=== PATIENT | male | born 1950 | race Caucasian/White ===

== ENCOUNTER 2024-09-28 05:53 | Inpatient (IN) | payer MEDICARE ==
[2024-09-28] MEDS ORDERED: NITROGLYCERIN SL TABS 0.4 MG TAB SUBLINGUAL PRN (05:58)
[2024-09-28] MEDS ORDERED: CLOPIDOGREL 75 MG TAB PO PRN (05:58)
[2024-09-28] MEDS ORDERED: ALPRAZolam 0.25 MG TAB PO PRN (05:58)
[2024-09-28] MEDS ORDERED: ALPRAZolam 0.5 MG TAB PO PRN (05:58)
[2024-09-28] MEDS ORDERED: ASPIRIN 81 MG PO PRN (05:58)
[2024-09-28 06:48] LABS: Basophils # (A) 0.06 10*3/uL (0.00-0.10); Basophils % (A) 0.9 %; Eosinophils # (A) 0.01 10*3/uL (0.04-0.35); Eosinophils % (A) 0.2 %; HCT 39.0 % (39.6-50.0); HGB 13.1 g/dL (13.0-17.0); Lymphocytes # (A) 2.63 10*3/uL (0.90-5.00); Lymphocytes % (A) 40.5 %; MCH 30.8 pg (27.0-32.0); MCHC 33.6 g/dL (32.0-37.0); MCV 91.5 fL (80.0-97.0); Monocytes # (A) 1.48 10*3/uL (0.20-1.00); Monocytes % (A) 22.8 %; Neutrophils # (A) 2.27 10*3/uL (1.80-7.70); Neutrophils % (A) 34.8 %; Platelet Count 162 10*3/uL (140-440); RBC 4.26 10*6/uL (4.40-5.60); RDW 13.2 % (11.5-14.5); WBC 6.50 10*3/uL (4.50-10.00)
[2024-09-28 06:59] LABS: African American GFR (CKD) 85 (>60 ml/min/1.73 sqM); Anion Gap 7 mmol/L; Blood Urea Nitrogen 17 mg/dL (9-20); Calcium 11.6 mg/dL (8.4-10.2); Carbon Dioxide 28 mmol/L (22-30); Chloride 107 mmol/L (98-107); Glucose 104 mg/dL (74-99); Non-African American GFR(CKD) 74 (>60 ml/min/1.73 sqM); Potassium 4.6 mmol/L (3.5-5.1); Sodium 142 mmol/L (137-145)
[2024-09-28] MEDS ORDERED: ceFAZolin 2 GM in SODIUM CHLORIDE 0.9% 500 ML 500 ML IRRIGATION PRN (07:00)
[2024-09-28] MEDS: MIDAZOLAM 2 MG/2 ML VIAL IV STA (07:06)
[2024-09-28] MEDS ORDERED: DEXMEDETOMIDINE/0.9% NACL(PMX) 400 MCG/100 ML IV ONE (07:29)
[2024-09-28] MEDS ORDERED: GLYCOPYRROLATE 0.2 MG/ML 2 ML VIAL ONE (07:29)
[2024-09-28] MEDS ORDERED: hydrALAZINE HCL 20 MG/ML 1 ML VIAL ONE (07:29)
[2024-09-28] MEDS ORDERED: PROTAMINE SULFATE 10 MG/ML 5 ML VIAL ONE (07:29)
[2024-09-28] MEDS ORDERED: NITROGLYCERIN-D5W PMX 50 MG/250 ML BOTTLE IV ONE (07:29)
[2024-09-28] MEDS ORDERED: HEPARIN SODIUM,PORCINE 10,000 UNIT/ML 1 ML VIAL ONE (07:29)
--- NOTE | 2024-09-28 07:30 | P.ANPRN ---
Procedure Note - Anesthesia - Invasive Line Right Arterial Line Time Out Performed: Yes Date of Procedure: 09/28/24 Time of Procedure: 07:10 Location of Patient: PreOp Preparation: Sterile Prep Arterial Line Location: Radial Ultrasound Used: Yes Purpose - Visualization and Identification of Vasculature: Yes Image Stored and Saved: Yes Narrative: Invasive line placement per sterile protocol utilized.
--- NOTE | 2024-09-28 07:42 | P.GSHP ---
History of Present Illness H&P Date: 09/28/24 Chief Complaint: Carotid stenosis 73-year-old gentleman with history of bilateral carotid stenosis measuring greater than 80% bilaterally presents to the hospital for elective right TCAR prior to returning and having his carotid on the left repaired with endarterectomy and patch angioplasty. He denies any lateralizing symptoms such as weakness, vision changes or speech issues currently. He denies any fevers, chills, chest pain or shortness of breath. He underwent CTA which demonstrated suitable candidate for right TCAR but his left side is significantly calcified and therefore would benefit from a carotid endarterectomy. - Review of Systems All systems: negative (What is mentioned in the HPI or past medical history) Past Medical History Past Medical History: Hyperlipidemia, Syncope Additional Past Medical History / Comment(s): fainting spells x8 02/2024-04/2024- placed on midodrine which helped. still has rare dizziness with position changes. mild tear to left rotator. carotid artery disease and underlying kidney disease noted in cardiology clearance. History of Any Multi-Drug Resistant Organisms: None Reported Past Surgical History: Hernia Repair Additional Past Surgical History / Comment(s): wrist surgery, rt rotator cuff repair. colonoscopy Past Anesthesia/Blood Transfusion Reactions: No Reported Reaction Additional Past Anesthesia/Blood Transfusion Reaction / Comment(s): no blood transfusions Smoking Status: Former smoker - Past Family History Father Family Medical History: Renal Disease Additional Family Medical History / Comment(s): malaria Medications and Allergies Home Medications Medication Instructions Recorded Confirmed Type Unk Fiber Capsule 1 tab PO DAILY 09/25/24 09/28/24 History Aspirin [Adult Low Dose Aspirin EC] 81 mg PO DAILY 09/25/24 09/28/24 History Atorvastatin [Lipitor] 80 mg PO HS 09/25/24 09/28/24 History Clopidogrel [Plavix] 75 mg PO DAILY 09/25/24 09/28/24 History Ergocalciferol [Vitamin D2 (1250 1,250 mcg PO WEEKLY 09/25/24 09/28/24 History Mcg = 09733 Iu)] Fenofibrate,Micronized 130 mg PO DAILY 09/25/24 09/28/24 History [Fenofibrate] Midodrine [ProAmatine] 5 mg PO TID 09/25/24 09/28/24 History [place] [employer] 1 tab PO DAILY 09/25/24 09/28/24 History Unk Liver Tonic 1 tab PO DAILY 09/25/24 09/28/24 History Allergies Allergy/AdvReac Type Severity Reaction Status Date / Time No Known Allergies Allergy Verified 09/28/24 06:20 Surgical - Exam Vital Signs Temp Pulse Resp BP Pulse Ox 98.2 F 60 18 152/89 98 09/28/24 06:51 09/28/24 06:51 09/28/24 06:51 09/28/24 06:51 09/28/24 06:51 Patient Seen Date: 09/28/24 Patient Seen Time: 07:20 - General well developed, well nourished, no distress - Eyes PERRL, normal ocular movement - ENT normal pinna, normal nares - Neck no masses - Respiratory normal expansion, normal respiratory effort - Cardiovascular Rhythm: regular - Abdomen Abdomen: soft - Integumentary no rash - Neurologic normal coordination, normal sensation - Psychiatric oriented to time, oriented to person, oriented to place, speech is normal Results CTA neck demonstrates bilateral carotid stenosis greater than 70% - Labs 09/28/24 06:30 09/28/24 06:30 Abnormal Lab Results - Last 24 Hours (Table) 09/28/24 09/28/24 Range/Units 06:30 06:30 RBC 4.26 L (4.40-5.60) 10*6/uL Hct 39.0 L (39.6-50.0) % Immature Gran # 0.05 H (0.00-0.04) 10*3/uL Monocytes # 1.48 H (0.20-1.00) 10*3/uL Eosinophils # 0.01 L (0.04-0.35) 10*3/uL Glucose 104 H (74-99) mg/dL Calcium 11.6 H (8.4-10.2) mg/dL Diabetes panel 09/28/24 Range/Units 06:30 Sodium 142 (137-145) mmol/L Potassium 4.6 (3.5-5.1) mmol/L Chloride 107 (98-107) mmol/L Carbon Dioxide 28 (22-30) mmol/L BUN 17 (9-20) mg/dL Creatinine 1.01 (0.66-1.25) mg/dL Glucose 104 H (74-99) mg/dL Calcium 11.6 H (8.4-10.2) mg/dL Calcium panel 09/28/24 Range/Units 06:30 Calcium 11.6 H (8.4-10.2) mg/dL Pituitary panel 09/28/24 Range/Units 06:30 Sodium 142 (137-145) mmol/L Potassium 4.6 (3.5-5.1) mmol/L Chloride 107 (98-107) mmol/L Carbon Dioxide 28 (22-30) mmol/L BUN 17 (9-20) mg/dL Creatinine 1.01 (0.66-1.25) mg/dL Glucose 104 H (74-99) mg/dL Calcium 11.6 H (8.4-10.2) mg/dL Adrenal panel 09/28/24 Range/Units 06:30 Sodium 142 (137-145) mmol/L Potassium 4.6 (3.5-5.1) mmol/L Chloride 107 (98-107) mmol/L Carbon Dioxide 28 (22-30) mmol/L BUN 17 (9-20) mg/dL Creatinine 1.01 (0.66-1.25) mg/dL Glucose 104 H (74-99) mg/dL Calcium 11.6 H (8.4-10.2) mg/dL Assessment and Plan Assessment: Bilateral internal carotid artery stenosis greater than 70% Hyperlipidemia Hypertension Plan: Risks and benefits of CEA, TCAR, transfemoral carotid stenting discussed with the patient and through shared decision making patient wishes to proceed with TCAR on the right. He does smoke cigars occasionally with a history of tobacco abuse which he has quit roughly 30 years ago smoking cigarettes. Once again we discussed smoking cessation for his cigars and referred to [place] quit line. Patient states taking his aspirin and Plavix. To the OR for TCAR procedure on the right.
[2024-09-28] MEDS: LIDOCAINE 1% INJ 10MG/ML (20 ML MDV) SQ ONE ×2 (08:02→08:25)
[2024-09-28] MEDS: ceFAZolin 2 GM in SODIUM CHLORIDE 0.9% 500 ML 500 ML IRRIGATION ONE (08:05)
[2024-09-28] MEDS: HEPARIN SODIUM (1,000 UNIT/ML) 2,000 UNIT in SODIUM CHLORIDE 0.9% 1,000 ML IRRIGATION ONE (08:05)
[2024-09-28] MEDS: THROMBIN (BOVINE) 5,000 UNIT VIAL TOPICAL ONE (08:20)
[2024-09-28] MEDS: IOPAMIDOL-370 100ML BTL INJ ONE (08:59)
[2024-09-28] MEDS ORDERED: RX INFO: IV CONTRAST WAS GIVEN 1 EACH MISC MISCELLANE PRN (09:00)
[2024-09-28] MEDS ORDERED: MAG HYDROX/AL HYDROX/SIMETH 30 ML CUP PO PRN (09:09)
[2024-09-28] MEDS ORDERED: ATROPINE SULFATE 0.1 MG/ML 10ML SYRINGE IV PRN (09:09)
--- NOTE | 2024-09-28 09:09 | P.OP ---
Description of Procedure: Date: 09/28/2024 Preoperative diagnosis: Right internal carotid stenosis greater than 70% Postoperative diagnosis: Same Procedure: Right internal carotid artery TCAR (transient carotid artery revascularization) with ENROUTE trans-carotid neuro protection and stent system Surgeon: Kalen Martinez D.O. Anesthesia: Local with sedation Estimated blood loss: Minimal Complications: None Condition: Stable Findings: Calcific disease at the bifurcation Pre-Dilatation balloon: 5.5 x 30 mm balloon Stent: 10 x 30 mm En route stent Flow reversal time: 8 minutes Contrast: 40 cc Indication for procedure: 73-year-old gentleman with history of bilateral internal carotid artery stenosis noted on elevated velocities for carotid Doppler as well as CTA presents to the hospital for elective right TCAR and then to follow-up with a left carotid endarterectomy. He did not have any lateralizing symptoms such as weakness, vision changes or speech issues prior to and only symptoms were dizziness. Operative narrative: After written and informed consent was obtained from the patient and all risks, benefits and complications were described. The patient was brought to the operating suite and laid in a supine position. The neck and groin were prepped and the patient was sterilely draped. A transverse 2-4 cm incision was made between the sternal and clavicular heads of the sternocleidomastoid muscle, below the omohyoid. Following longitudinal division of the carotid sheath the jugular vein was partially dissected and retracted. Once 3 cm of common carotid artery (CCA) were isolated, umbilical tape was placed around the proximal 1/3 of the CCA under direct vision. A 5.0 polypropylene suture was pre-placed in the anterior wall of the CCA, in a purse- string stitch, close to the clavicle to facilitate hemostasis upon removal of the arterial sheath at completion of the TCAR procedure. The contralateral left common femoral vein was accessed under ultrasound guidance, using standard Seldinger and micropuncture access technique. The Venous Return Sheath was advanced into the CFV over the 0.035 wire provided. Blood was aspirated from the flow line followed by flushing of the Venous Sheath with heparinized saline. The Venous Sheath was secured to the patient's skin with suture to maintain optimal position in the vessel. Heparin was given to obtain a therapeutic activated clotting time >250 seconds prior to arterial access. A 4-Romanian non-stiffened micropuncture set was used, puncturing the artery with the 21G needle through the pre-placed stitch while holding gentle traction on the umbilical tape to stabilize and centralize the CCA within the incision. Careful attention was paid to the change in CCA shape when using the umbilical tape to control or lift the artery. The micropuncture wire was then advanced 3-4 cm into the CCA and, the 21G needle was removed. The micropuncture sheath was advanced 2-3 cm into the CCA and the wire and dilator were removed. Pulsatile backflow indicated correct positioning. The provided 0.035" J-tipped guidewire was inserted as close as possible to the bifurcation without engaging the lesion. After micropuncture sheath removal, the Transcarotid Arterial Sheath was advanced to the 2.5cm marker and the 0.035 wire and dilator were then removed. Arterial Sheath position was assessed under fluoroscopy in two projections to ensure that the sheath tip was oriented coaxially in the CCA. The Arterial Sheath was sutured to the patient with gentle forward tension. Blood was slowly aspirated followed by flushing with heparinized saline. Traction applied to the CCA previously to facilitate access was gently released. The Flow Controller was connected to the Transcarotid Arterial Sheath, prepared by passively allowing a column of arterial blood to fill the line and connected to the Venous Return Sheath. CCA inflow was occluded proximal to the arteriotomy with a vascular clamp to achieve active flow reversal. To confirm flow reversal, a saline bolus was delivered into the venous flow line on both High and Low flow settings of the Flow Controller. Angiograms were performed with slow injections of a small amount of contrast filling just past the lesion to minimize antegrade transmission of micro-bubbles. Prior to lesion manipulation, heart rate (70bpm) and systolic BP (140-160mmHg) were managed upwards to optimize flow reversal and procedural neuroprotection. The lesion was crossed with an 0.014 guidewire, pre- dilatation with a 5.5x30mm balloon was performed followed by primary stenting with the ENROUTE Transcarotid [id number] stent. Post dilatation was not performed. At TCAR case completion, antegrade flow was restored. The Transcarotid Arterial Sheath was removed and the pre-closure suture was tied. The Venous Return Sheath was removed and hemostasis was achieved with brief manual compression. The patient tolerated the procedure well and was moving all four extremities to command and then sent to PACU for recovery.
[2024-09-28] MEDS: IV FLUID CONTINUATION 100 ML IV ONE (09:35)
[2024-09-28] MEDS: PHENYLEPHRINE 10 MG/ML VIAL IV ONE ×4 (09:59→10:33)
--- NOTE | 2024-09-28 10:40 | IR ---
EXAMINATION TYPE: IR stent intravas non coronary DATE OF EXAM: 09/28/2024 FLUOROSCOPY RT CAROTID STENOSIS Total DAP: 11.8 Gycm2. 400 images are submitted. [facility], , 09/28/2024 10:38 AM
[2024-09-28] MEDS: SODIUM CHLORIDE 0.9% 1,000 ML IV ONE (10:41)
[2024-09-28] MEDS: PHENYLEPHRINE 40 MG in SODIUM CHLORIDE 0.9% 250 ML IV SCH (10:52)
[2024-09-28] MEDS: HYDROmorphone 0.5 MG/0.5 ML SYRINGE IVP PRN (11:26)
[2024-09-28] MEDS ORDERED: NALOXONE 0.4 MG/ML 1 ML VIAL IV PRN (13:25)
[2024-09-28] MEDS ORDERED: Magnesium Replacement Protocol 1 EACH MISC MISCELLANE PRN (13:25)
[2024-09-28] MEDS ORDERED: Potassium Replacement Protocol 1 EACH MISC MISCELLANE PRN (13:25)
[2024-09-28 13:37] LABS: Glucose,Whole Blood 111 mg/dL (70-110)
[2024-09-28] MEDS: SODIUM CHLORIDE 0.9% 1,000 ML in EMPTY BAG 1 BAG IV ONE (13:45)
[2024-09-28] MEDS: ONDANSETRON 4 MG/2 ML VIAL IVP ONE (14:11)
[2024-09-28] MEDS: LACTATED RINGERS 1,000 ML IV SCH (14:11)
[2024-09-28] MEDS: DEXAMETHASONE SOD PHOSPHATE 4 MG/ML 1 ML VIAL IV ONE (14:11)
[2024-09-28] MEDS: HYDROcodone/APAP 5-325MG 1 EACH TAB PO PRN (14:31)
[2024-09-28] MEDS: FENOFIBRATE 160 MG TAB PO SCH (15:43)
[2024-09-28] MEDS: MIDODRINE 5 MG TAB PO SCH (15:43)
--- NOTE | 2024-09-28 16:33 | P.CONS ---
History of Present Illness - Reason for Consult Consult date: 09/28/24 Medical management - History of Present Illness Subjective: Patient is a 73-year-old male with past medical history of hypertension, bilateral carotid stenosis, HLD, GERD who is admitted for elective right TCAR. Patient seen and examined at bedside. No acute events overnight. Patient states he is doing well after the procedure. He notes he had a headache earlier however at this time it is resolved. He also notes since having the catheter placed during the procedure he has had the urge to urinate more frequently. His last bowel movement was yesterday. Of note, patient is a former smoker. Patient states the surgeon told him to continue his Plavix and will complete a left endarterectomy in 3 to 4 weeks. He denies fevers, chills, dysuria, chest pain, shortness of breath, abdominal pain. Pertinent positives and negatives as discussed above, a complete review of systems was performed and all other systems are negative. Vitals: Signs Reviewed Physical Exam: General: nontoxic, no distress, appears at stated age Derm: warm, dry, intact. Dressing intact and dry to right neck with no erythema. Head: atraumatic, normocephalic, symmetric Eyes: EOMI, anicteric sclera Mouth: no lip lesion, mucus membranes moist Cardiovascular: S1 S2 reg, no murmur, rubs, or gallops Lungs: CTA bilateral, no rhonchi, no rales, no accessory muscle use Abdominal: soft, non-tender to palpation Extremities: no gross muscle atrophy, no edema Neuro: Alert, Oriented, CNII-XII grossly intact Psych: well appearing, appropriate affect Data Received Today: Pertinent Labs: WBC 6.50, hemoglobin 13.1, sodium 142, potassium 4.6, BUN 17, creatinine 1.01, calcium 11.6 Imaging: None today Assessment and Plan: Hypercalcemia - Calcium 11.6 currently - Will continue to monitor Hypotension - Continue home midodrine 5 mg p.o. 3 times daily - Currently on phenylephrine, will de-escalate as tolerated Hyperlipidemia - Continue home atorvastatin 80 mg at bedtime and fenofibrate 160 mg daily s/p Right TCAR Bilateral carotid stenosis Dizziness - Pain management per primary team - Continue home Plavix 75 mg daily - Continue home aspirin 81 mg daily - GI prophylaxis per primary team - VTE prophylaxis per primary team F: NS 1mL/kg/hr and then 75ml/hr for 1L total E: Will monitor replenish as needed N: Heart healthy diet A: Independently ambulating DVT ppx: Mechanical SCDs Code status: Full code Anticipated discharge place: Per primary team Anticipated discharge time: Per primary team Rober Kline DO PGY-1 IM Dictation was produced using [employer] dictation software. please excuse any grammatical, word or spelling errors. I have seen and evaluated the patient today. Discussed with the resident and agree with the residents finding and plan as documented in the resident's note. Changes highlighted in blue font. Past Medical History Past Medical History: Coronary Artery Disease (CAD), GERD/Reflux, Hyperlipidemia, Syncope Additional Past Medical History / Comment(s): fainting spells x8 02/2024-04/2024- placed on midodrine which helped. still has rare dizziness with position changes. mild tear to left rotator. carotid artery disease and underlying kidney disease noted in cardiology clearance., Seasonal allergies, Tinnitus, History of Any Multi-Drug Resistant Organisms: None Reported Past Surgical History: Hernia Repair Additional Past Surgical History / Comment(s): wrist surgery, rt rotator cuff repair. colonoscopy Past Anesthesia/Blood Transfusion Reactions: No Reported Reaction Additional Past Anesthesia/Blood Transfusion Reaction / Comm: no blood transfusions Past Psychological History: No Psychological Hx Reported Smoking Status: Former smoker Past Alcohol Use History: Occasional Additional Past Alcohol Use History / Comment(s): quit smoking 35yrs ago 1ppd, smokes a few cigars a week until a month ago. 1-2 drinks in the Daily in the evening Past Drug Use History: None Reported - Past Family History Father Family Medical History: Renal Disease Additional Family Medical History / Comment(s): malaria Medications and Allergies Home Medications Medication Instructions Recorded Confirmed Type Unk Fiber Capsule 1 tab PO DAILY 09/25/24 09/28/24 History Aspirin [Adult Low Dose Aspirin EC] 81 mg PO DAILY 09/25/24 09/28/24 History Atorvastatin [Lipitor] 80 mg PO HS 09/25/24 09/28/24 History Clopidogrel [Plavix] 75 mg PO DAILY 09/25/24 09/28/24 History Ergocalciferol [Vitamin D2 (1250 1,250 mcg PO WEEKLY 09/25/24 09/28/24 History Mcg = 93960 Iu)] Fenofibrate,Micronized 130 mg PO DAILY 09/25/24 09/28/24 History [Fenofibrate] Midodrine [ProAmatine] 5 mg PO TID 09/25/24 09/28/24 History [place] [employer] 1 tab PO DAILY 09/25/24 09/28/24 History Unk Liver Tonic 1 tab PO DAILY 09/25/24 09/28/24 History Allergies Allergy/AdvReac Type Severity Reaction Status Date / Time No Known Allergies Allergy Verified 09/28/24 06:20 Physical Exam Vitals: Vital Signs Temp Pulse Resp BP BP BP BP 09/28/24 13:26 64 14 130/69 09/28/24 13:00 58 L 10 L 95/57 100/58 116/44 09/28/24 12:45 64 12 113/64 113/66 120/48 09/28/24 12:30 59 L 12 142/73 144/72 189/67 09/28/24 12:15 58 L 10 L 149/76 149/76 183/67 09/28/24 12:00 55 L 12 146/72 151/78 184/70 09/28/24 11:45 60 12 155/79 145/80 09/28/24 11:40 163/75 152/80 09/28/24 11:30 61 12 159/80 09/28/24 11:25 57 L 9 L 168/82 169/86 09/28/24 11:15 51 L 12 161/78 09/28/24 11:13 167/85 204/67 09/28/24 11:08 190/91 09/28/24 11:05 176/87 09/28/24 11:00 58 L 10 L 172/84 175/85 191/69 09/28/24 10:53 114/70 09/28/24 10:45 104/61 09/28/24 10:40 122/69 09/28/24 10:37 141/75 129/74 09/28/24 10:26 60 11 L 130/71 147/78 174/57 09/28/24 10:15 64 10 L 127/72 165/54 09/28/24 10:07 113/66 152/57 09/28/24 10:02 121/69 160/66 09/28/24 10:00 58 L 11 L 121/69 09/28/24 09:44 58 L 6 L 86/50 116/46 09/28/24 09:29 96.7 F L 58 L 14 131/55 112/48 09/28/24 06:51 98.2 F 60 18 152/89 160/88 Pulse Ox 09/28/24 13:26 97 09/28/24 13:00 99 09/28/24 12:45 97 09/28/24 12:30 97 09/28/24 12:15 98 09/28/24 12:00 98 09/28/24 11:45 97 09/28/24 11:40 09/28/24 11:30 98 09/28/24 11:25 98 09/28/24 11:15 98 09/28/24 11:13 09/28/24 11:08 09/28/24 11:05 09/28/24 11:00 99 09/28/24 10:53 09/28/24 10:45 09/28/24 10:40 09/28/24 10:37 09/28/24 10:26 98 09/28/24 10:15 98 09/28/24 10:07 09/28/24 10:02 09/28/24 10:00 98 09/28/24 09:44 98 09/28/24 09:29 96 09/28/24 06:51 98 Intake and Output 09/28/24 09/28/24 09/28/24 06:59 14:59 22:59 Intake Total 318.906 Output Total 550 Balance -231.094 Intake: IV 302 Intake, IV Titration 16.906 Amount Phenylephrine 40 mg In 16.906 Sodium Chloride 0.9% 250 ml @ 0.5 MCG/KG/MIN 15.85 mls/hr IV .Q16H2M [facility] Rx #:[id number] Output: Urine 550 Other: Weight 83.2 kg 83.2 kg Results CBC & Chem 7: 09/28/24 06:30 09/28/24 06:30 Labs: Abnormal Lab Results - Last 24 Hours (Table) 09/28/24 09/28/24 09/28/24 Range/Units 06:30 06:30 13:36 RBC 4.26 L (4.40-5.60) 10*6/uL Hct 39.0 L (39.6-50.0) % Immature Gran # 0.05 H (0.00-0.04) 10*3/uL Monocytes # 1.48 H (0.20-1.00) 10*3/uL Eosinophils # 0.01 L (0.04-0.35) 10*3/uL Glucose 104 H (74-99) mg/dL POC Glucose (mg/dL) 111 H (70-110) mg/dL Calcium 11.6 H (8.4-10.2) mg/dL
[2024-09-28] MEDS: ATORVASTATIN 80 MG TAB PO SCH (21:42)
[2024-09-29 05:47] LABS: Basophils # (A) 0.06 10*3/uL (0.00-0.10); Basophils % (A) 0.6 %; Eosinophils # (A) 0.02 10*3/uL (0.04-0.35); Eosinophils % (A) 0.2 %; HCT 36.6 % (39.6-50.0); HGB 12.1 g/dL (13.0-17.0); Lymphocytes # (A) 3.52 10*3/uL (0.90-5.00); Lymphocytes % (A) 33.2 %; MCH 30.3 pg (27.0-32.0); MCHC 33.1 g/dL (32.0-37.0); MCV 91.7 fL (80.0-97.0); Monocytes # (A) 2.43 10*3/uL (0.20-1.00); Monocytes % (A) 22.9 %; Neutrophils # (A) 4.47 10*3/uL (1.80-7.70); Neutrophils % (A) 42.3 %; Platelet Count 150 10*3/uL (140-440); RBC 3.99 10*6/uL (4.40-5.60); RDW 13.4 % (11.5-14.5); WBC 10.59 10*3/uL (4.50-10.00)
[2024-09-29 06:01] LABS: ALT 20 U/L (4-49); AST 31 U/L (17-59); African American GFR (CKD) >90 (>60 ml/min/1.73 sqM); Albumin 3.7 g/dL (3.5-5.0); Alkaline Phosphatase 47 U/L (38-126); Anion Gap 8 mmol/L; Blood Urea Nitrogen 14 mg/dL (9-20); Calcium 10.4 mg/dL (8.4-10.2); Carbon Dioxide 25 mmol/L (22-30); Chloride 105 mmol/L (98-107); Glucose 105 mg/dL (74-99); Magnesium 1.3 mg/dL (1.6-2.3); Non-African American GFR(CKD) 81 (>60 ml/min/1.73 sqM); Potassium 4.2 mmol/L (3.5-5.1); Sodium 138 mmol/L (137-145); Total Protein 6.2 g/dL (6.3-8.2)
[2024-09-29] MEDS: MAGNESIUM SULFATE-D5W PMX 1 GM in DEXTROSE/WATER 1 100ML.BAG IVPB SCH (06:24)
[2024-09-29] MEDS: PANTOPRAZOLE 40 MG TABLET PO SCH (06:24)
[2024-09-29] MEDS: CLOPIDOGREL 75 MG TAB PO SCH (08:06)
[2024-09-29] MEDS: ASPIRIN 81 MG PO SCH (08:06)
[2024-09-29 08:19] VITALS: TEMP 99.1
--- NOTE | 2024-09-29 09:24 | P.DS ---
Providers Date of admission: 09/28/24 05:53 Attending physician: Kalen Martinez DO Consults: 09/28/24 09:36 Consult Physician Routine Consulting Provider: Ta Cook Reason/Comments: Medical management Do you want consulting provider notified?: Yes Primary care physician: Michelle Cummins [facility] Course: 73-year-old male with a history of bilateral internal carotid artery stenosis with elevated velocities on carotid Doppler as well as CTA head presented to the hospital yesterday for elective right transcarotid artery revascularization ( TCAR). He is postop day #1 for right internal carotid artery TCAR. Initially postoperatively he had some hypotension and was sent to the intensive care unit for Khadar-Synephrine. Vital signs have improved and Khadar-Synephrine has been discontinued. He has been up and ambulating. No complaints of any focal deficits. Patient is tolerating a regular diet. No difficulty with swallowing. Right side of neck incision with some ecchymosis well-approximated. Exam General appearance: The patient is alert, oriented, appears in no acute distress. HET: Head is normocephalic and atraumatic. Pupils are equal and reactive. Neck: Supple. Right side of neck incision well-approximated, with some surrounding ecchymosis, no hematoma noted. Heart: Regular. Lungs: Equal expansion, normal respiratory effort. Abdomen: Soft, nondistended. Extremities: Normal skin color and turgor. Neurological: No focal deficits. Strength and sensation are grossly intact. Assessment 1. Asymptomatic right internal carotid artery stenosis greater than 70% status post right internal carotid artery transient carotid artery revascularization with stent 2. Postoperative hypotension, now resolved. Can be expected outcome of surgery. 3. Asymptomatic left carotid stenosis Plan 1. Patient to continue aspirin 81 mg daily and Plavix 75 mg daily 2. Continue home medications 3. Castanon catheter discontinued 4. Encourage ambulation 5. Postoperative care and restrictions discussed with patient. Patient verbalized understanding. 6. Plan for discharge today with outpatient follow-up in 2 weeks The impression and plan of care has been dictated as directed. I performed a history and examination of this patient, discussed the same with the dictator. I agree with the dictator's note ,documented as a scribe. Any additional findings or plans will be noted. Procedures: Procedure: Right internal carotid artery TCAR (transient carotid artery revascularization) with ENROUTE trans-carotid neuro protection and stent system Surgeon: Kalen Martinez D.O. Patient Condition at Discharge: Stable Plan - Discharge Summary Discharge Rx Participant: Yes New Discharge Prescriptions: No Action Ergocalciferol [Vitamin D2 (1250 Mcg = 18208 Iu)] 1,250 mcg PO WEEKLY Midodrine [ProAmatine] 5 mg PO TID Atorvastatin [Lipitor] 80 mg PO HS Clopidogrel [Plavix] 75 mg PO DAILY Unk Liver Tonic 1 tab PO DAILY Unk Fiber Capsule 1 tab PO DAILY Fenofibrate,Micronized [Fenofibrate] 130 mg PO DAILY Aspirin [Adult Low Dose Aspirin EC] 81 mg PO DAILY [employer] 1 tab PO DAILY Discharge Medication List Unk Fiber Capsule 1 tab PO DAILY 09/25/24 [History] Aspirin [Adult Low Dose Aspirin EC] 81 mg PO DAILY 09/25/24 [History] Atorvastatin [Lipitor] 80 mg PO HS 09/25/24 [History] Clopidogrel [Plavix] 75 mg PO DAILY 09/25/24 [History] Ergocalciferol [Vitamin D2 (1250 Mcg = 72126 Iu)] 1,250 mcg PO WEEKLY 09/25/24 [History] Fenofibrate,Micronized [Fenofibrate] 130 mg PO DAILY 09/25/24 [History] Midodrine [ProAmatine] 5 mg PO TID 09/25/24 [History] [employer] 1 tab PO DAILY 09/25/24 [History] Unk Liver Tonic 1 tab PO DAILY 09/25/24 [History]
[2024-09-29] MEDS: MIDODRINE 5 MG TAB PO STA (10:26)
[2024-09-29] MEDS: PSEUDOEPHEDRINE 30 MG TAB PO SCH (13:34)
[2024-09-29] MEDS: MIDODRINE 5 MG TAB PO SCH (13:34)
--- NOTE | 2024-09-29 14:03 | P.PN ---
Subjective Progress Note Date: 09/29/24 Subjective: Patient seen and examined at bedside. No acute events overnight. Patient states he is feeling well this morning. He reports some urgency, frequency, dysuria that he notes it has occurred after having the catheter placed for the procedure. He denies headache, dizziness, lightheadedness, chest pain, shortness of breath. Patient was taken off of the phenylephrine drip however prior to discharge blood pressure dropped to 80/45 and discharge was canceled. Pertinent positives and negatives as discussed above, a complete review of systems was performed and all other systems are negative. Vitals: Signs Reviewed Physical Exam: General: nontoxic, no distress, appears at stated age Derm: warm, dry, intact Head: atraumatic, normocephalic, symmetric Eyes: EOMI, anicteric sclera Mouth: no lip lesion, mucus membranes moist Cardiovascular: S1 S2 reg, no murmur, rubs, or gallops Lungs: CTA bilateral, no rhonchi, no rales, no accessory muscle use Abdominal: soft, non-tender to palpation Extremities: no gross muscle atrophy, no edema Neuro: Alert, Oriented, CNII-XII grossly intact, gait normal Psych: well appearing, appropriate affect Data Received Today: Pertinent Labs: WBC 10.59, hemoglobin 12.1, sodium 138, potassium 4.2, BUN 14, creatinine 0.93, magnesium 1.3, corrected calcium 10.2 Imaging: None today Assessment and Plan: Hypotension - Increased midodrine to 10 mg p.o. 3 times daily - Phenylephrine drip was discontinued - Sudafed 60 mg q6hr was started - Will continue to monitor Hypomagnesemia - Magnesium today was 1.3, replenished with 4 g - Will continue to monitor Hyperlipidemia - Continue home atorvastatin 80 mg at bedtime and fenofibrate 160 mg daily Hypercalcemia -resolved - Corrected calcium 10.2 - Will continue to monitor s/p Right TCAR Bilateral carotid stenosis Dizziness - Pain management per primary team - Continue home Plavix 75 mg daily - Continue home aspirin 81 mg daily - GI prophylaxis per primary team - VTE prophylaxis per primary team F: LR 20 ml/hr E: Will monitor replenish as needed N: Heart healthy diet A: Independently ambulating DVT ppx: Mechanical SCDs Code status: Full code school Anticipated discharge place: Per primary team Anticipated discharge time: Per primary team Rober Kline DO PGY-1 IM Dictation was produced using [employer] dictation software. please excuse any grammatical, word or spelling errors. I have seen and evaluated the patient today. Discussed with the resident and agree with the residents finding and plan as documented in the resident's note. Changes highlighted in blue font. Objective - Vital Signs Vital signs: Vital Signs Temp 99.1 F 09/29/24 08:00 Pulse 55 L 09/29/24 13:05 Resp 23 09/29/24 13:05 BP 90/52 09/29/24 13:05 Pulse Ox 97 09/29/24 13:05 FiO2 Intake & Output 09/28/24 09/29/24 09/29/24 18:59 06:59 18:59 Intake Total 1126.367 353.962 489.035 Output Total 550 500 75 Balance 576.367 -146.038 414.035 Weight 83.2 kg 84.5 kg Intake: IV 687.27 295 480 Lactated Ringers 1,000 ml 220 80 @ 20 mls/hr IV .Q24H JESSIE Rx#:[id number] Magnesium Sulfate-D5w Pmx 400 1 gm In Dextrose/Water 1 100ml.bag @ 100 mls/hr IVPB Q1H JESSIE Rx#: [id number] Sodium Chloride 0.9% 1, 385.27 75 000 ml In Empty Bag 1 bag @ 1 ML/KG/HR 85.275 mls/ hr IV .[id number] ONE Rx#: [id number] Intake, IV Titration 39.097 58.962 9.035 Amount Phenylephrine 40 mg In 39.097 58.962 9.035 Sodium Chloride 0.9% 250 ml @ 0.5 MCG/KG/MIN 15.85 mls/hr IV .Q16H2M JESSIE Rx #:[id number] Oral 400 Output: Urine 550 500 75 Other: Voiding Method Urinal Urinal Urinal # Voids 1 1 1 # Bowel Movements 1 1 ABP, PAP, CO, CI - Last Documented Arterial Blood Pressure 130/126 - Labs CBC & Chem 7: 09/29/24 05:25 09/29/24 05:25 Labs: Abnormal Lab Results - Last 24 Hours (Table) 09/28/24 09/29/24 09/29/24 Range/Units 13:36 05:25 05:25 WBC 10.59 H (4.50-10.00) 10*3/uL RBC 3.99 L (4.40-5.60) 10*6/uL Hgb 12.1 L (13.0-17.0) g/dL Hct 36.6 L (39.6-50.0) % MPV 9.3 L (9.5-12.2) fL Immature Gran # 0.09 H (0.00-0.04) 10*3/uL Monocytes # 2.43 H (0.20-1.00) 10*3/uL Eosinophils # 0.02 L (0.04-0.35) 10*3/uL Glucose 105 H (74-99) mg/dL POC Glucose (mg/dL) 111 H (70-110) mg/dL Calcium 10.4 H (8.4-10.2) mg/dL Magnesium 1.3 L (1.6-2.3) mg/dL Total Protein 6.2 L (6.3-8.2) g/dL
[2024-09-29 15:36] VITALS: BP 143/77; PULSE 47; RESP 11
== END 2024-09-29 16:30 | disposition home or self-care (01) | DRG 36 ==
LOC: 2ORMAIN 05:53 → 2SICU 13:00
PROVIDERS: ADMIT Surgery; ATTEND Surgery
PROC: 037K3DZ Dilation of Right Internal Carotid Artery with Intraluminal Device, Percutaneous Approach (ICD-10-PCS; principal; 2024-09-28 07:30)
PROC: X2AH336 Cerebral Embolic Filtration, Extracorporeal Flow Reversal Circuit from Right Common Carotid Artery, Percutaneous Approach, New Technology Group 6 (ICD-10-PCS; 2024-09-28 07:30)
DX: I65.23 Occlusion and stenosis of bilateral carotid arteries (principal); E78.5 Hyperlipidemia, unspecified; I10 Essential (primary) hypertension; I25.10 Atherosclerotic heart disease of native coronary artery without angina pectoris; R30.0 Dysuria; E83.42 Hypomagnesemia; E83.52 Hypercalcemia; F17.290 Nicotine dependence, other tobacco product, uncomplicated; I95.9 Hypotension, unspecified; Z71.6 Tobacco abuse counseling; Z79.02 Long term (current) use of antithrombotics/antiplatelets; Z79.82 Long term (current) use of aspirin; Z79.899 Other long term (current) drug therapy
CPT/HCPCS: 37215; 76937; 80048; 80053; 83735; 85025